=== PATIENT | male | born 1960 | race Caucasian/White ===

== ENCOUNTER 2023-03-20 05:16 | Emergency (ER) | payer OTHER ==
[~2023-03-20] VITALS: Ht 172.7 cm; Wt 83.0 kg
[2023-03-20 05:36] VITALS: BP 104/77; PULSE 95; RESP 16; TEMP 98.2; O2SAT 100
[2023-03-20] MEDS ORDERED: IBUP-2028 PO (07:39)
[2023-03-20] MEDS ORDERED: ACET-2708 PO (07:39)
[2023-03-20] MEDS ORDERED: TOPUD MT (07:39)
[2023-03-20] MEDS ORDERED: ACETAMINOPHEN 325MG TABLET PO ONE (07:45)
[2023-03-20] MEDS ORDERED: IBUPROFEN 400MG TABLET PO ONE (07:45)
== END 2023-03-20 08:11 | disposition home or self-care (01) ==
LOC: ER 05:16
DX: M54.9 Dorsalgia, unspecified (principal)
CPT/HCPCS: 99282